=== PATIENT | female | born 1975 ===

== ENCOUNTER 2017-10-02 19:43 | Emergency (ER) | payer SELFPAY ==
[2017-10-02 19:44] VITALS: BMI 39.9
--- NOTE | 2017-10-02 21:01 | C.PDOC ---
History Of Present Illness 42 y/o female with no significant PMHx presents to ED with complaints of right sided upper back and neck pain that began 2 days ago. Patient states symptoms radiate to the right chest and sometimes to the right arm. Patient states pain is effected when changing positions. Denies recent trauma, heavy lifting, cough , fever, chills, other risk factors or coronary disease. Patient is non smoker. Chief Complaint (Nursing): Chest Pain History Per: Patient History/Exam Limitations: no limitations Onset/Duration Of Symptoms: Hrs Current Symptoms Are (Timing): Still Present Quality: "Pain" Modifying Factors: None Exacerbating Factors: Turning, Movement Alleviating Factors: None Recent travel outside of the [place]: No Past Medical History Reviewed: Historical Data, Nursing Documentation, Vital Signs Vital Signs: Last Vital Signs Temp 98 F 10/02/17 22:54 Pulse 66 10/02/17 22:54 Resp 19 10/02/17 22:54 BP 111/58 L 10/02/17 22:54 Pulse Ox 97 10/02/17 22:54 - Medical History PMH: Hypothyroidism Surgical History: No Surg Hx Family History: States: No Known Family Hx - Social History Hx Alcohol Use: No Hx Substance Use: No Review Of Systems Constitutional: Negative for: Fever, Chills Respiratory: Negative for: Shortness of Breath Gastrointestinal: Negative for: Nausea, Vomiting, Diarrhea Musculoskeletal: Positive for: Neck Pain, Back Pain (Upper back) Neurological: Negative for: Weakness, Numbness Physical Exam - Physical Exam Appears: Well, Non-toxic, No Acute Distress Skin: Normal Color, Warm, Dry Head: Atraumatic, Normacephalic Chest: Symmetrical, No Tenderness Cardiovascular: Rhythm Regular Respiratory: Normal Breath Sounds, No Decreased Breath Sounds, No Rales, No Rhonchi, No Wheezing Gastrointestinal/Abdominal: Bowel Sounds (Active), Soft, No Tenderness, Other ( Obese) Back: Other (Pain to right trapezius muscle which is spontanuous for the pain to right chest ) Extremity: Normal ROM, No Tenderness, No Pedal Edema, No Deformity Extremity: Bilateral: Normal Color And Temperature, Normal ROM Neurological/Psych: Oriented x3, Normal Speech, Normal Cognition ED Course And Treatment - Laboratory Results Result Diagrams: 10/02/17 21:09 10/02/17 21:09 O2 Sat by Pulse Oximetry: 99 (RA) Pulse Ox Interpretation: Normal Medical Decision Making Medical Decision Making: Impression: - Typical chest pain, likely musculoskeletal Ordered EKG, blood work, and CXR. EKG Results: - Normal sinus rhythm at 64bpm - No ectopy or ischemic changes - All intervals within normal limits - Normal EKG Re-check: - Patient is pain free after Toradol and Flexeril administered. Patient states no more back or chest pain. - Patient will be discharged with non cardiac chest pain. Disposition - Disposition Referrals: [facility] [Outside] Disposition: HOME/ ROUTINE Disposition Time: 06:47 Condition: FAIR Prescriptions: Cyclobenzaprine [Flexeril] 5 mg PO TID #15 tab Naproxen [Naprosyn] 500 mg PO BID #20 tablet Instructions: Chest Pain That Is Not Caused by the Heart (DC), Muscle and Bone Pain (DC) Forms: Gen Discharge Inst [place], [employer] (Divehi) Print Language: BURKINAN - Clinical Impression Clinical Impression: Cervical radiculopathy - Scribe Statement The provider has reviewed the documentation as recorded by the Nicolasibjason Sosa All medical record entries made by the Nicolasibjason were at my direction and personally dictated by me. I have reviewed the chart and agree that the record accurately reflects my personal performance of the history, physical exam, medical decision making, and the department course for this patient. I have also personally directed, reviewed, and agree with the discharge instructions and disposition.
--- NOTE | 2017-10-02 21:02 | C.PDOC ---
Chief Complaint (Nursing): Chest Pain Past Medical History Vital Signs: Last Vital Signs Temp 97.6 F 10/02/17 20:09 Pulse 66 10/02/17 20:09 Resp 14 10/02/17 20:09 BP 117/79 10/02/17 20:09 Pulse Ox 99 10/02/17 20:09 - Medical History PMH: Hypothyroidism Denies: Chronic Kidney Disease - Social History Hx Alcohol Use: No Hx Substance Use: No ED Course And Treatment O2 Sat by Pulse Oximetry: 99 Disposition - Disposition
[2017-10-02 21:12] LABS: BASO % 0.3 % (0.0-2.0); EOS # 0.1 K/uL (0.0-0.7); EOS % 1.5 % (0.0-4.0); HEMOGLOBIN 13.9 g/dL (11.0-16.0); LYMPH # 2.9 K/uL (1.0-4.3); LYMPH % 31.5 % (20.0-40.0); MEAN CELL VOLUME 90.4 fL (81.0-99.0); MEAN CORPUSCULAR HEMOGLOBIN 31.2 pg (27.0-31.0); MEAN CORPUSCULAR HGB CONC 34.5 g/dL (33.0-37.0); MEAN PLATELET VOLUME 8.6 fL (7.2-11.7); MONO # 0.9 K/uL (0.0-0.8); MONO % 9.6 % (0.0-10.0); NEUT # 5.2 K/uL (1.8-7.0); NEUT % 57.1 % (50.0-75.0); NRBC % 0.1 % (0.0-2.0); RBC 4.46 Mil/uL (3.80-5.20); RED CELL DISTRIBUTION WIDTH 13.2 % (11.5-14.5); WHITE BLOOD COUNT 9.2 K/uL (4.8-10.8)
[2017-10-02 21:25] LABS: ALBUMIN 4.3 g/dL (3.5-5.0); CALCIUM 8.7 mg/dl (8.6-10.4); GFR AFRICAN-AMERICAN > 60; GFR NON-AFRICAN AMERICAN > 60
[2017-10-02 21:26] LABS: ALT/SGPT 43 U/L (9-52); AST/SGOT 43 U/L (14-36); BLOOD UREA NITROGEN 11 mg/dL (7-17)
[2017-10-02 22:55] VITALS: BP 111/58; PULSE 66; RESP 19; TEMP 98
[2017-10-03 06:48] VITALS: O2SAT 99
--- NOTE | 2017-10-03 08:55 | RAD ---
PROCEDURE: CHEST RADIOGRAPH, 1 VIEW HISTORY: Chest pain COMPARISON: None available. FINDINGS: LUNGS: The lungs are well inflated and clear. PLEURA: No pneumothorax or pleural fluid seen. CARDIOVASCULAR: Normal. OSSEOUS STRUCTURES: No significant abnormalities. VISUALIZED UPPER ABDOMEN: Normal. OTHER FINDINGS: None. IMPRESSION: No active pulmonary disease.
== END 2017-10-02 23:03 | disposition home or self-care (01) ==
LOC: C.ER 19:43
DX: M54.12 Radiculopathy, cervical region (principal); E03.9 Hypothyroidism, unspecified
CPT/HCPCS: 71045; 80053; 84484; 85025; 96374; 99285; J1885